=== PATIENT | female | born 1930 | race Caucasian/White ===

== ENCOUNTER → 2016-08-23 | Outpatient (CLI) | payer MEDICARE, BC, MEDICAID ==
[~2016-08-23] MED LIST: ATIVAN0.5 MG PO; CARAFATE1 GM PO; CARDIZEM CD180 MG PO; COLACE100 MG PO; CYMBALTA60 MG PO; DETROL LA4 MG PO; ELIQUIS2.5 MG PO; FLONASE16 GM NASBOTH; GAS RELIEF80 MG PO; LINZESS145 MCG PO; MIRALAX17 GM PO; MUCINEX D ER 61 EACH PO; NEURONTIN100 MG PO; NEURONTIN300 MG PO; NORCO 325-5 MG1 TAB PO; PROTONIX40 MG PO; SEROQUEL25 MG PO; SINEMET 25-1001 TAB PO; THERA M PLUS T1 EACH PO; ZANTAC300 MG PO; ZOFRAN4 MG PO
== END | disposition short-term general hospital (02) ==
LOC: CLUROL 10:26
DX: N39.41 Urge incontinence (principal)